=== PATIENT | female | born 1980 | race Caucasian/White ===

== ENCOUNTER 2017-12-29 17:30 | Emergency (ER) | payer OTHER ==
[2017-12-29 20:19] LABS: ADD MAN DIFF? NO
[2017-12-29 20:33] LABS: BASOPHIL # 0.1 10^3/ul (0.0-0.1); BASOPHILS % 0.6 % (0.0-2.0); EOSINOPHILS # 0.2 10^3/ul (0.0-0.5); EOSINOPHILS % 2.1 % (0.0-7.0); HEMATOCRIT 33.1 % (37.0-47.0); HEMOGLOBIN 10.6 g/dl (12.0-16.0); LYMPHOCYTES # 2.6 10^3/ul (0.8-2.9); LYMPHOCYTES % 26.7 % (15.0-51.0); MEAN CORPUSCULAR HEMOGLOBIN 26.3 pg (29.0-33.0); MEAN CORPUSCULAR VOLUME 82.1 fl (82.0-101.0); MEAN PLATELET VOLUME 10.1 fl (7.4-10.4); MONOCYTE # 0.6 10^3/ul (0.3-0.9); MONOCYTES % 6.2 % (0.0-11.0); NEUTROPHIL # 6.2 10^3/ul (1.6-7.5); NEUTROPHILS % 64.1 % (39.0-77.0); PLATELET COUNT 415 10^3/UL (140-415); RED BLOOD COUNT 4.03 10^6/ul (4.20-5.40); RED CELL DISTRIBUTION WIDTH 14.2 % (11.5-14.5)
[2017-12-29 20:33] LABS: WHITE BLOOD COUNT 9.7 10^3/ul (4.8-10.8)
[2017-12-29 20:36] LABS: POSITIVE DIFF @See below
[2017-12-29 20:42] LABS: ANION GAP 10 (5-13); BLOOD UREA NITROGEN 10 mg/dl (7-20); CALCIUM 8.9 mg/dl (8.4-10.2); CARBON DIOXIDE 25 mmol/L (21-31); CHLORIDE 104 mmol/L (97-110); CREATININE 0.65 mg/dl (0.44-1.00); Estimated GFR > 60 mL/min (>60); GLUCOSE 91 mg/dl (70-220); SODIUM 139 mmol/L (135-144)
[2017-12-29] MEDS: IOHEXOL 300MG/ML 150 ML BTL (21:19)
[2017-12-29] MEDS: SOD CHLORIDE 0.9% 100 ML (21:19)
[2017-12-29 21:39] LABS: ANISOCYTOSIS 2+ (0-0); EOSINOPHILS % (M) 1 % (0-7); LYMPHOCYTES #M 2.5 10^3/ul (0.8-2.9); LYMPHOCYTES % (M) 26 % (15-51); MICROCYTOSIS 2+ (0-0); MONOCYTE #M 0.2 10^3/ul (0.3-0.9); MONOCYTES % (M) 3 % (0-11); PLATELET MORPHOLOGY COMMENT @See below; POIKILOCYTOSIS 1+ (0-0); SEGMENTED NEUTROPHILS (M) % 70 % (39-77); SMUDGE%M 25 % (0-0)
== END 2017-12-29 23:02 | disposition home or self-care (01) ==
LOC: FTE 17:30
DX: D64.9 Anemia, unspecified (principal); R22.2 Localized swelling, mass and lump, trunk; F17.210 Nicotine dependence, cigarettes, uncomplicated
CPT/HCPCS: 71260; 73200; 76536; 80048; 85025; 99285-25

== ENCOUNTER 2018-01-09 18:57 | Emergency (ER) | payer OTHER | END 2018-01-09 22:12 | disposition home or self-care (01) | LOC: FTE 18:57 | DX: R05 Cough (principal) | CPT/HCPCS: 99283; Z7502 ==